=== PATIENT | female | born 1970 | race African-American/Black ===

== ENCOUNTER 2018-08-07 19:27 | Inpatient (IN) | payer OTHER, SELFPAY ==
[2018-08-07 20:29] LABS: #Basophils 0.1 thou/uL (0.0-0.2); #Eosinphils 0.2 thou/uL (0.0-0.7); #Lymphocytes 2.2 thou/uL (1.20-3.40); #Monocytes 0.8 thou/uL (0.11-0.59); #Neutrophils 10.6 thou/uL (1.40-6.50); %Basophils 0.4 % (0.0-1.0); %Eosinophils 1.6 % (0.0-10.0); %Lymphocytes 15.7 % (21.0-51.0); %Neutrophils 76.3 % (42.0-75.0); Hemoglobin 12.6 g/dL (12.0-16.0); Mean Corpuscular HGB CONC 32.9 g/dL (32.0-36.0); Mean Corpuscular Hemoglobin 28.7 pg (27.0-31.0); Mean Corpuscular Volume 87.2 fL (78.0-98.0); Mean Platelet Volume 7.3 fL (7.4-10.4); Platelet Count 343 thou/uL (130-400); RBC Distribution Width 12.9 % (11.5-14.5); White Blood Cell (WBC) Count 13.9 thou/uL (4.8-10.8)
--- NOTE | 2018-08-07 20:29 | RAD ---
ONE VIEW CHEST: HISTORY: Chest pain. Epigastric pain. COMPARISON: 04/06/2015 FINDINGS: Normal cardiac silhouette. The pulmonary vessels are within normal limits. Patchy interstitial opac ities, without consolidation or mass. No pleural effusion. No pneumothorax or osseous abnormalities . IMPRESSION: Patchy interstitial opacities, which are presumed to be due to edema. POS: [facility]
--- NOTE | 2018-08-07 20:47 | RAD ---
ABDOMEN TWO VIEW SERIES: INDICATIONS: Abdominal pain. TECHNIQUE: Three views provided. FINDINGS: The imaged lung bases are clear. No free air is seen. The bowel gas pattern is nonspecific. Phlebo liths overly the pelvis. Mild osseous degenerative change is present. IMPRESSION: 1. Nonspecific bowel gas pattern. 2. No free air. 3. Clear lung bases. POS: [facility]
[2018-08-07 20:50] LABS: ALT (SGPT) 15 U/L (8-55); AST (SGOT) 21 U/L (5-34); Albumin 3.8 g/dL (3.5-5.0); Alkaline Phosphatase 84 U/L (40-150); Anion Gap 9 mmol/L (10-20); BUN (Urea Nitrogen) 9 mg/dL (7.0-18.7); Bilirubin, Total 0.5 mg/dL (0.2-1.2); CK (CPK) 106 U/L (29-168); Calc. Creatinine Clearance 0 mL/min (70-130); Calcium 9.2 mg/dL (7.8-10.44); Carbon Dioxide 28 mmol/L (22-29); Chloride 102 mmol/L (98-107); Estimated GFR-MDRD 73; Globulin 3.6 g/dL (2.4-3.5); Glucose 126 mg/dL (70-105); Potassium 3.3 mmol/L (3.5-5.1); Protein, Total 7.4 g/dL (6.0-8.3); Sodium 136 mmol/L (136-145)
[2018-08-07 20:56] LABS: CKMB 0.3 ng/mL (0-6.6); Troponin I Less than 0.010 ng/mL (< 0.028)
[2018-08-07] MEDS ORDERED: Pantoprazole 40 MG VIAL ONE (20:56)
--- NOTE | 2018-08-07 21:20 | ULT ---
GALLBLADDER ULTRASOUND: INDICATIONS: Right upper quadrant pain. FINDINGS: There is distention of the gallbladder, and there is mild enlargement of the common duct, measuring 6 -7 mm. Leblanc sign is reported as negative by the manager concrete. There is no focal hepatic lesion. N o shadowing cholelithiasis. The imaged pancreatic duct is mildly prominent, where visualized, at 4 m m. IMPRESSION: Distention of the gallbladder and biliary ductal system, as well as mild prominence of the imaged reardon creatic duct. No shadowing cholelithiasis. Recommend correlation with biliary laboratory values. POS: [facility]
[2018-08-07 22:25] LABS: Bilirubin Negative (Negative); Blood, Urine Trace (Negative); Clarity CLOUDY (Clear); Glucose, Urine (Dipstick) Negative (Negative); Leukocyte Negative (Negative); Nitrite Negative (Negative); Protein, Urine (Dipstick) Trace mg/dL (Neg-Trace); Specific Gravity, Urine 1.011 (1.002-1.036); pH, Urine 6.5 (5.0-9.0)
[2018-08-07 22:31] LABS: Bacteria/HPF None Seen HPF (None Seen); Hyaline Casts/LPF 0-3 HYALINE CAST LPF (0-3 Hyaline); Pathc Cast-AUWi Flag 0.29 (0-2.49); RBC/HPF 0-3 HPF (0-3)
[2018-08-07] MEDS ORDERED: Morphine 4 MG/ML VIAL SLOW IVP PRN (23:29)
[2018-08-07] MEDS ORDERED: Ondansetron ODT 4 MG TAB SL PRN (23:30)
[2018-08-07] MEDS ORDERED: Acetaminophen 325 MG TAB PO PRN (23:30)
[2018-08-07] MEDS ORDERED: Ondansetron HCl/PF 4 MG/2 ML Vial IVP PRN (23:30)
[2018-08-07] MEDS ORDERED: Ketorolac Tromethamine 30 MG/ML VIAL IVP PRN (23:30)
[2018-08-07 23:48] VITALS: BMI 37.7
[2018-08-08] MEDS: Sodium Chloride 0.9% 1,000 ML IV SCH ×4 (00:47→19:52)
[2018-08-08] MEDS ORDERED: Acetaminophen 325 MG TAB PO PRN (08:32)
[2018-08-08] MEDS ORDERED: Ondansetron ODT 4 MG TAB PO PRN (08:32)
[2018-08-08] MEDS ORDERED: Ketorolac Tromethamine 30 MG/ML VIAL IVP PRN (08:32)
[2018-08-08] MEDS: Lisinopril/Hydrochlorothiazide 20 mg/12.5 mg Tablet PO SCH (08:41)
[2018-08-08 08:54] LABS: #Basophils 0.1 thou/uL (0.0-0.2); #Eosinphils 0.2 thou/uL (0.0-0.7); #Lymphocytes 2.2 thou/uL (1.20-3.40); #Monocytes 0.7 thou/uL (0.11-0.59); #Neutrophils 6.7 thou/uL (1.40-6.50); %Basophils 0.7 % (0.0-1.0); %Eosinophils 2.2 % (0.0-10.0); %Lymphocytes 22.4 % (21.0-51.0); %Monocytes 6.7 % (0.0-10.0); Hemoglobin 11.6 g/dL (12.0-16.0); Mean Corpuscular HGB CONC 32.4 g/dL (32.0-36.0); Mean Corpuscular Hemoglobin 28.6 pg (27.0-31.0); Mean Corpuscular Volume 88.1 fL (78.0-98.0); Mean Platelet Volume 7.6 fL (7.4-10.4); Platelet Count 280 thou/uL (130-400); RBC Distribution Width 12.8 % (11.5-14.5); Red Blood Cell (RBC) Count 4.05 mill/uL (4.20-5.40); White Blood Cell (WBC) Count 9.9 thou/uL (4.8-10.8)
[2018-08-08 09:20] LABS: Anion Gap 12 mmol/L (10-20); BUN (Urea Nitrogen) 6 mg/dL (7.0-18.7); Calc. Creatinine Clearance 133 mL/min (70-130); Calcium 8.9 mg/dL (7.8-10.44); Carbon Dioxide 20 mmol/L (22-29); Chloride 107 mmol/L (98-107); Estimated GFR-MDRD Greater than 90; Glucose 78 mg/dL (70-105); Lipase 389 U/L (8-78); Potassium 3.7 mmol/L (3.5-5.1); Sodium 135 mmol/L (136-145)
[2018-08-08] MEDS ORDERED: Pantoprazole 40 MG VIAL IVP SCH (21:00)
--- NOTE | 2018-08-09 02:37 | CON ---
DATE OF CONSULTATION: 08/08/2018 HISTORY OF PRESENT ILLNESS: The patient is a 47-year-old -Dominican female, who was in her [facility] state of health until the day prior to admission when she developed significant epigastric pain r adiating through the back. She has had a similar episode of pancreatitis back in [address] Purdy at that time. She denies any alcohol use. Denies any recent weight loss. Denies any recent ch leisa in bowel function, although may be experiencing a small amount of constipation. PAST MEDICAL HISTORY: Significant for hypertension and borderline diabetes. PAST SURGICAL HISTORY: Includes tubal ligation. ALLERGIES: No known medical allergies. HOME MEDICATIONS: Include lisinopril/hydrochlorothiazide 1 p.o. q. day. SOCIAL HISTORY: She does smoke, does not drink alcohol. FAMILY HISTORY: Negative for pancreatic disorders. REVIEW OF SYSTEMS: Ten systems were reviewed and were negative except for above. PHYSICAL EXAMINATION: GENERAL: Shows overweight -Dominican female, in no acute distress. VITAL SIGNS: Temperature 97.9, pulse 65, respiratory rate 18, blood pressure 176/84. HEENT: Unremarkable. NECK: Supple. CHEST: Clear. CARDIOVASCULAR: Regular rate and rhythm. ABDOMEN: Soft, tender in the epigastric area without rebound or guarding. Bowel sounds are present and normoactive. RECTAL: Deferred. EXTREMITIES: Normal. NEUROLOGIC: Nonfocal. LABORATORY DATA AND IMAGING: Shows admission white blood cell count of 13.9. Hemoglobin 12.6, repea t is 9.9 and 11.6 respectively. Chemistry is significant for potassium 3.3, glucose 126. LFTs were totally normal. Triglyceride is not performed. Urinalysis is essentially normal. Abdominal ultraso und shows distention of the gallbladder and biliary ductal dilatation as well as mild prominence of t he image, pancreatic duct. No gallstones are appreciated. ASSESSMENT: 1. Acute idiopathic pancreatitis - no alcohol use. No gallstones, but there is some biliary and reardon creatic dilatation by ultrasound. 2. Hypertension. 3. Borderline diabetes by history. RECOMMENDATIONS: 1. Check triglyceride level. 2. CT of the abdomen. 3. Continue n.p.o.
[2018-08-09] MEDS: Sodium Chloride 0.9% 1,000 ML IV SCH (03:53)
[2018-08-09 04:26] LABS: #Eosinphils 0.3 thou/uL (0.0-0.7); #Lymphocytes 2.9 thou/uL (1.20-3.40); #Monocytes 0.7 thou/uL (0.11-0.59); #Neutrophils 4.2 thou/uL (1.40-6.50); %Basophils 0.3 % (0.0-1.0); %Eosinophils 3.5 % (0.0-10.0); %Lymphocytes 35.3 % (21.0-51.0); %Monocytes 8.7 % (0.0-10.0); %Neutrophils 52.2 % (42.0-75.0); Hemoglobin 11.6 g/dL (12.0-16.0); Mean Corpuscular HGB CONC 33.5 g/dL (32.0-36.0); Mean Corpuscular Hemoglobin 29.4 pg (27.0-31.0); Mean Corpuscular Volume 87.7 fL (78.0-98.0); Mean Platelet Volume 7.6 fL (7.4-10.4); Platelet Count 276 thou/uL (130-400); RBC Distribution Width 12.7 % (11.5-14.5); Red Blood Cell (RBC) Count 3.95 mill/uL (4.20-5.40); White Blood Cell (WBC) Count 8.1 thou/uL (4.8-10.8)
[2018-08-09 04:36] LABS: ALT (SGPT) 22 U/L (8-55); AST (SGOT) 19 U/L (5-34); Albumin 3.3 g/dL (3.5-5.0); Alkaline Phosphatase 86 U/L (40-150); Anion Gap 9 mmol/L (10-20); BUN (Urea Nitrogen) 5 mg/dL (7.0-18.7); Bilirubin, Total 0.6 mg/dL (0.2-1.2); Calc. Creatinine Clearance 126 mL/min (70-130); Calcium 8.9 mg/dL (7.8-10.44); Carbon Dioxide 24 mmol/L (22-29); Chloride 105 mmol/L (98-107); Estimated GFR-MDRD 89; Globulin 3.3 g/dL (2.4-3.5); Glucose 83 mg/dL (70-105); Lipase 205 U/L (8-78); Potassium 3.4 mmol/L (3.5-5.1); Protein, Total 6.6 g/dL (6.0-8.3); Sodium 135 mmol/L (136-145)
--- NOTE | 2018-08-09 05:59 | HP ---
DATE OF ADMISSION: 08/07/2018 REASON FOR ADMISSION AND CHIEF COMPLAINT: Abdominal pain. HISTORY OF PRESENT ILLNESS: Ms. Bey is a 47-year-old female with past medical history of hypertension, who came because of the abdominal pain mainly in the epigastric area with burping and pain was getting worse. Pain radiates to the upper abdomen as well as to the left side, left upper, but the pain was getting worse whenever she eats and vomited once. The patient came to the emergency room where she was evaluated and found to have possible pancreatitis. The patient was started on IV fluids, started on Protonix as well and admitted for further evaluation and management. PAST MEDICAL HISTORY: Hypertension. PAST SURGICAL HISTORY: Status post tubal ligation. CURRENT MEDICATIONS: Patient is on lisinopril with hydrochlorothiazide 20/12.5 daily. ALLERGIES: No known drug allergies. FAMILY HISTORY: Nothing of interest. SOCIAL HISTORY: Patient lives with family. No history of alcohol intake. Smokes one pack a day. REVIEW OF SYSTEMS: Unremarkable except for the abdominal pain. PHYSICAL EXAMINATION: GENERAL: The patient is alert, awake, oriented x3. VITAL SIGNS: Temperature 98, pulse 74, respirations 20, blood pressure 130/70. HEENT: Head is normocephalic, atraumatic. Pupils are equal and reactive to light. Nasopharynx is pale and dry. Hard and soft palate, no lesions seen. SKIN: Skin turgor decreased. NECK: Supple. No JVD. LUNGS: Bilateral air entry present. No rales, no rhonchi. CARDIAC: S1, S2 regular. ABDOMEN: Soft, tender in the epigastric area and both upper quadrants. No guarding, no rigidity. Bowel sounds present. RECTAL: Deferred. CENTRAL NERVOUS SYSTEM: No focal deficit. LABORATORY AND X-RAY FINDINGS: CBC shows WBC 13.9, hemoglobin 12, hematocrit 38 , platelets 343. Metabolic panel: Sodium 136, potassium 3.3, chloride 102, CO2 of 28, urea nitrogen 9, glucose 126. Serum lipase 2704. CK-MB 0.3, troponin I less than 0.010. LFTs are normal. Urinalysis negative. Ultrasound of the abdomen revealed distention of the gallbladder and biliary duct cyst with mild prominence of the pancreatic duct. EKG shows sinus bradycardia with heart rate of 59, no acute ST-T wave changes seen. ASSESSMENT: 1. Abdominal pain. 2. Possible acute pancreatitis. 3. Hypertension. 4. Hypokalemia. PLAN: 1. Vital signs q.4 hours. 2. Activity: As tolerated. 3. Allergies: NKDA. 4. Diet: Clear liquids. 5. IV fluids: Normal saline at 100 mL per hour. 6. Toradol 30 mg IVP q.6 hours p.r.n. 7. GI consult. 8. Protonix 40 mg IV piggyback daily. 9. We will obtain a.m. labs. MTDD
[2018-08-09] MEDS: Lisinopril/Hydrochlorothiazide 20 mg/12.5 mg Tablet PO SCH (07:38)
[2018-08-09 07:40] VITALS: TEMP 98.1
[2018-08-09 11:09] VITALS: BP 162/80
--- NOTE | 2018-08-09 11:55 | CT ---
CT OF THE ABDOMEN AND PELVIS WITH AND WITHOUT IV CONTRAST: Date: 08/09/18 INDICATION: History of pancreatitis and epigastric abdominal pain. COMPARISON: Right upper quadrant ultrasound dated 08/07/18, CT aortic dissection protocol dated 04/06/15, and CT of the abdomen and pelvis dated 10/22/14. FINDINGS: There is bibasilar atelectasis. No focal hepatic lesion is evident. There are mildly prominent lymph nodes within the peripancreatic and channing hepatis regions, which are stable to comparison CT of 2014. No drainable fluid collection is evident. The pancreas enhances liz ropriately. The spleen, adrenal glands, and kidneys are normal appearing. There are moderate calcifications involving the abdominopelvic vasculature. There is a 1.8 cm involuting cyst within the left ovary. No free fluid is evident. The bladder is dec ompressed. No acute osseous abnormality is evident. There is a fat-containing right inguinal hernia. IMPRESSION: ] 1. Bibasilar lung atelectasis. 2. No focal hepatic lesion identified. 3. No drainable fluid collection seen. 4. Other chronic findings as above. POS: [facility]
--- NOTE | 2018-08-09 12:04 | PRG ---
DATE OF SERVICE: 08/09/2018 SUBJECTIVE: The patient is feeling well. She is having no abdominal pain. She is hungry. OBJECTIVE: VITAL SIGNS: Temperature 98.1, pulse 73, respiratory rate 18, blood pressure 162/80. CHEST: Clear. CARDIOVASCULAR: Regular rate and rhythm. ABDOMEN: Soft, nontender, without organomegaly or masses. Bowel sounds present and normoactive. LABORATORY DATA: Shows a sodium 135, potassium 3.4, albumin 3.3, lipase of 205. Triglycerides 71. Abdominal pelvic CT is still pending. ASSESSMENT: 1. Acute pancreatitis of unknown etiology. 2. Abnormal ultrasound of bile duct and pancreatic duct. RECOMMENDATIONS: 1. Advance diet. 2. Await CT results.
--- NOTE | 2018-08-10 02:37 | DIS ---
DATE OF ADMISSION: 08/07/2018 DATE OF DISCHARGE: 08/09/2018 ADMITTING DIAGNOSES: 1. Acute pancreatitis. 2. Abdominal pain secondary to #1. 3. Hypertension. 4. Hypokalemia. FINAL DIAGNOSES: 1. Acute idiopathic pancreatitis. No alcohol use, no cholelithiasis. 2. Hypertension. 3. Hypokalemia. BRIEF SUMMARY OF HOSPITAL COURSE: Ms. Bey is a 47-year-old - Iranian female admitted because of abdominal pain with sudden onset. The patient has markedly elevated lipase. Abdominal ultrasound revealed no evidence of gallstones, but dilated biliary ductal system. A GI consult was done. The patient was seen by Dr. Davalos. He felt the patient has idiopathic pancreatitis and advised to advance the diet. A CT scan of the abdomen and pelvis was done and it revealed no evidence of any focal hepatic lesion or any kind of pancreatic inflammation. It only showed a cyst in the left ovary otherwise. It was unremarkable. The patient tolerated diet very well. In view of improvement, the patient is being discharged. At the time of discharge , she was stable. Vital signs stable. Lungs clear. Heart sounds regular. Abdomen is soft, nontender. Bowel sounds present. DISCHARGE MEDICATIONS: Increase lisinopril/hydrochlorothiazide to 20/12.5 b.i.d. because her blood pressure was elevated. FOLLOWUP: The patient will come for followup next week. MARILEE
== END 2018-08-09 14:41 | disposition home or self-care (01) | DRG 440 ==
LOC: ERS 19:27 → ONC 21:30 → ERS 22:47
PROVIDERS: ADMIT Internal Medicine; ATTEND Internal Medicine
DX: K85.00 Idiopathic acute pancreatitis without necrosis or infection (principal); I10 Essential (primary) hypertension; E87.6 Hypokalemia; R73.03 Prediabetes
CPT/HCPCS: 36415; 71045; 74019; 74177; 76705; 80048; 80053; 81003; 81015; 82553; 83690; 83880; 84478; 84484; 85025; 93005; 96361; 96374; A4216; C9113; J1885

== ENCOUNTER 2019-01-27 17:12 | Emergency (ER) | payer OTHER, SELFPAY ==
[2019-01-27 17:46] LABS: #Basophils 0.1 thou/uL (0.0-0.2); #Eosinphils 0.3 thou/uL (0.0-0.7); #Lymphocytes 3.1 thou/uL (1.20-3.40); #Neutrophils 7.8 thou/uL (1.40-6.50); %Basophils 0.8 % (0.0-1.0); %Eosinophils 2.3 % (0.0-10.0); %Lymphocytes 25.2 % (21.0-51.0); %Monocytes 8.4 % (0.0-10.0); %Neutrophils 63.3 % (42.0-75.0); Mean Corpuscular HGB CONC 34.1 g/dL (32.0-36.0); Mean Corpuscular Volume 85.3 fL (78.0-98.0); Mean Platelet Volume 7.7 fL (7.4-10.4); Platelet Count 289 thou/uL (130-400); RBC Distribution Width 12.8 % (11.5-14.5); Red Blood Cell (RBC) Count 4.82 mill/uL (4.20-5.40); White Blood Cell (WBC) Count 12.4 thou/uL (4.8-10.8)
--- NOTE | 2019-01-27 17:57 | RAD ---
PORTABLE UPRIGHT FRONTAL CHEST RADIOGRAPH 01/27/19 COMPARISON: 08/07/18 HISTORY: Chest pain radiating to the back. FINDINGS: The heart and mediastinal contours are stable. No pneumothorax or pleural fluid. No focal consolidati on or alveolar edema. IMPRESSION: No acute findings. POS: [facility]
[2019-01-27 18:01] LABS: ALT (SGPT) 15 U/L (8-55); AST (SGOT) 17 U/L (5-34); Albumin 4.2 g/dL (3.5-5.0); Alkaline Phosphatase 97 U/L (40-150); Anion Gap 15 mmol/L (10-20); BUN (Urea Nitrogen) 9 mg/dL (7.0-18.7); Bilirubin, Total 0.6 mg/dL (0.2-1.2); CK (CPK) 134 U/L (29-168); Calc. Creatinine Clearance 0 mL/min (70-130); Calcium 9.6 mg/dL (7.8-10.44); Carbon Dioxide 22 mmol/L (22-29); Chloride 102 mmol/L (98-107); Estimated GFR-MDRD 86; Globulin 3.7 g/dL (2.4-3.5); Glucose 99 mg/dL (70-105); Potassium 3.7 mmol/L (3.5-5.1); Protein, Total 7.9 g/dL (6.0-8.3); Sodium 135 mmol/L (136-145)
[2019-01-27] MEDS ORDERED: Mag-Al 1200 mg/1200 mg/30 ML UDCUP ONE (18:06)
[2019-01-27] MEDS ORDERED: Lidocaine Viscous Sol 2% 15 ml UD Cup ONE (18:06)
[2019-01-27] MEDS ORDERED: Morphine 2 MG/ML SYRINGE ONE (19:12)
[2019-01-27] MEDS ORDERED: Morphine 4 MG/ML VIAL ONE (19:12)
--- NOTE | 2019-01-28 09:31 | ULT ---
RIGHT UPPER QUADRANT ULTRASOUND: 01/27/19 COMPARISON: None. HISTORY: Right upper quadrant pain. TECHNIQUE: Multiplanar montoya scale sonographic imaging of the right upper quadrant provided. FINDINGS: The visualized portions of the pancreas appear unremarkable. No focal liver lesion or intrahepatic biliary dilatation is seen. No gallbladder wall thickening or pericholecystic fluid. No gallstones are noted. The legal office administrator rep orts a negative Leblanc's sign. The common bile duct measures 5 mm, within normal limits. The right kidney measures 11.3 cm craniocaudal dimension and demonstrates no evidence for stone, hydr onephrosis or mass. IMPRESSION: No acute findings. POS: [facility]
== END 2019-01-27 19:50 | disposition home or self-care (01) ==
LOC: ERS 17:12
DX: K85.90 Acute pancreatitis without necrosis or infection, unspecified (principal); I50.9 Heart failure, unspecified; M06.9 Rheumatoid arthritis, unspecified; F41.9 Anxiety disorder, unspecified; F32.9 Major depressive disorder, single episode, unspecified; F17.210 Nicotine dependence, cigarettes, uncomplicated; R73.03 Prediabetes; Z79.899 Other long term (current) drug therapy
CPT/HCPCS: 36415; 71045; 76705; 80053; 82550; 83690; 84484; 85025; 93005; 94760; 96374; J2270

== ENCOUNTER 2019-10-14 18:39 | Emergency (ER) | payer OTHER ==
--- NOTE | 2019-10-14 19:11 | RAD ---
Chest one view HISTORY: Cough. COMPARISON: 01/27/2019. FINDINGS: Cardiac silhouette and pulmonary vasculature are unremarkable. Mediastinum is midline. No c onfluent airspace consolidation or evidence of pneumothorax. Small focus of dystrophic calcification projects over the peripheral aspect of the left rotator cuff. sound art instructor leads ove rlie the chest. IMPRESSION: No active cardiopulmonary abnormalities are demonstrated.
[2019-10-14] MEDS ORDERED: predniSONE 20 MG TAB ONE (19:32)
== END 2019-10-14 20:35 | disposition home or self-care (01) ==
LOC: ERS 18:39
DX: T59.891A Toxic effect of other specified gases, fumes and vapors, accidental (unintentional), initial encounter (principal); I11.0 Hypertensive heart disease with heart failure; I50.9 Heart failure, unspecified; F32.9 Major depressive disorder, single episode, unspecified; F41.9 Anxiety disorder, unspecified; F17.210 Nicotine dependence, cigarettes, uncomplicated; Z79.899 Other long term (current) drug therapy; X14.0XXA Inhalation of hot air and gases, initial encounter
CPT/HCPCS: 71045; 93005; 94640; J7512; J7620

== ENCOUNTER 2019-10-30 09:47 | Emergency (ER) | payer OTHER | END 2019-10-30 10:35 | disposition home or self-care (01) | LOC: ERS 09:47 | DX: I88.9 Nonspecific lymphadenitis, unspecified (principal); F41.9 Anxiety disorder, unspecified; F32.9 Major depressive disorder, single episode, unspecified; M06.9 Rheumatoid arthritis, unspecified; R73.03 Prediabetes; I11.0 Hypertensive heart disease with heart failure; I50.9 Heart failure, unspecified; F17.210 Nicotine dependence, cigarettes, uncomplicated; Z79.899 Other long term (current) drug therapy | CPT/HCPCS: 99283 ==

== ENCOUNTER 2020-01-22 18:42 | Inpatient (IN) | payer OTHER, SELFPAY ==
[2020-01-22 19:37] LABS: #Basophils 0.1 thou/uL (0.0-0.2); #Eosinphils 0.2 thou/uL (0.0-0.7); #Lymphocytes 3.5 thou/uL (1.20-3.40); #Monocytes 0.9 thou/uL (0.11-0.59); #Neutrophils 7.4 thou/uL (1.40-6.50); %Basophils 0.6 % (0.0-1.0); %Eosinophils 1.8 % (0.0-10.0); %Monocytes 7.2 % (0.0-10.0); %Neutrophils 61.4 % (42.0-75.0); Mean Corpuscular HGB CONC 34.2 g/dL (32.0-36.0); Mean Corpuscular Hemoglobin 29.5 pg (27.0-31.0); Mean Corpuscular Volume 86.2 fL (78.0-98.0); Mean Platelet Volume 8.1 fL (7.4-10.4); Platelet Count 317 thou/uL (130-400); RBC Distribution Width 12.4 % (11.5-14.5); Red Blood Cell (RBC) Count 4.75 mill/uL (4.20-5.40); White Blood Cell (WBC) Count 12.1 thou/uL (4.8-10.8)
[2020-01-22 19:59] LABS: ALT (SGPT) 12 U/L (8-55); AST (SGOT) 16 U/L (5-34); Albumin 4.1 g/dL (3.5-5.0); Alkaline Phosphatase 97 U/L (40-110); Anion Gap 13 mmol/L (10-20); BUN (Urea Nitrogen) 8 mg/dL (7.0-18.7); Bilirubin, Total 0.5 mg/dL (0.2-1.2); Calc. Creatinine Clearance 0 mL/min (70-130); Calcium 9.7 mg/dL (7.8-10.44); Carbon Dioxide 28 mmol/L (22-29); Chloride 96 mmol/L (98-107); Estimated GFR-MDRD 79; Globulin 4.2 g/dL (2.4-3.5); Glucose 97 mg/dL (70-105); Protein, Total 8.3 g/dL (6.0-8.3); Sodium 134 mmol/L (136-145)
[2020-01-22 20:01] LABS: Potassium 2.9 mmol/L (3.5-5.1)
[2020-01-22] MEDS ORDERED: Ondansetron PF 4 MG/2 ML Vial ONE (20:02)
[2020-01-22] MEDS ORDERED: Morphine 4 MG/ML VIAL ONE (20:02)
--- NOTE | 2020-01-22 20:21 | RAD ---
PORTABLE CHEST: 01/22/20 HISTORY: Epigastric pain. COMPARISON: 10/14/19. The lungs appear clear. No infiltrate. Heart and mediastinum unremarkable. IMPRESSION: No evidence of infiltrate. POS: [facility]
[2020-01-22] MEDS ORDERED: Potassium Chloride 20 MEQ TAB ONE (20:30)
[2020-01-22] MEDS ORDERED: Potassium Chloride 40 MEQ in Sodium Chloride 0.9% 500 ML IVPB SCH (21:00)
--- NOTE | 2020-01-22 21:00 | ULT ---
RIGHT UPPER QUADRANT ULTRASOUND: 01/22/20 INDICATION: Epigastric and right upper quadrant abdominal pain radiating to the back with nausea. FINDINGS: No focal hepatic lesion is evident. Gallbladder is normal appearing. No sonographic Leblanc's sign reported. Common bile duct measures 4.9 mm. Right kidney measures 10.4 x 5..1 x 5.6 cm. No focal renal lesion or hydronephrosis evident. No free fluid is demonstrated. The main pancreatic duct is slightly accentuated within the pancreatic body but only measures up to 1 .9 mm. IMPRESSION: No acute sonographic abnormality seen within the abdomen. POS: [facility]
[2020-01-22] MEDS ORDERED: Morphine 4 MG/ML VIAL SLOW IVP PRN (23:30)
[2020-01-22] MEDS ORDERED: Ondansetron ODT 4 MG TAB SL PRN (23:31)
[2020-01-22] MEDS ORDERED: Ondansetron PF 4 MG/2 ML Vial IVP PRN (23:31)
[2020-01-22 23:59] VITALS: BMI 41.1
[2020-01-23] MEDS: Sodium Chloride 0.9% 1,000 ML IV SCH ×2 (00:36→03:30)
[2020-01-23] MEDS ORDERED: Lisinopril/Hydrochlorothiazide 20 mg/12.5 mg Tablet PO SCH (10:00)
[2020-01-23] MEDS: Dextrose 5 %-0.45 % NaCl 1,000 ML IV SCH ×2 (10:45→20:04)
[2020-01-23 12:56] LABS: Anion Gap 11 mmol/L (10-20); BUN (Urea Nitrogen) 6 mg/dL (7.0-18.7); Calc. Creatinine Clearance 132 mL/min (70-130); Calcium 8.8 mg/dL (7.8-10.44); Carbon Dioxide 23 mmol/L (22-29); Chloride 106 mmol/L (98-107); Estimated GFR-MDRD 89; Glucose 79 mg/dL (70-105); Potassium 3.6 mmol/L (3.5-5.1); Sodium 136 mmol/L (136-145)
[2020-01-23] MEDS: Morphine 2 MG/ML SYRINGE SLOW IVP PRN ×2 (15:25→21:52)
--- NOTE | 2020-01-23 19:03 | RAD ---
TWO VIEW ABDOMEN: 01/23/20 INDICATIONS: Pancreatitis. Supine upright views obtained. Scattered stool and gas seen throughout the colon. Small bowel gas pattern is unremarkable with some scattered small bowel gas noted. No small bowel dilatation. No evidence of obstruction. No soft tissu e mass effect or abnormal calcification. Osseous structures unremarkable. IMPRESSION: Nonspecific bowel gas pattern. Mildly increased small bowel gas; however, no evidence of small bowel dilatation or obstruction. POS: [facility]
[2020-01-23] MEDS: Lisinopril/Hydrochlorothiazide 20 mg/12.5 mg Tablet PO SCH (20:05)
[2020-01-23] MEDS: Ondansetron PF 4 MG/2 ML Vial IVP PRN (22:13)
[2020-01-24] MEDS: Dextrose 5 %-0.45 % NaCl 1,000 ML IV SCH ×3 (04:08→19:33)
[2020-01-24 05:31] LABS: #Basophils 0.1 thou/uL (0.0-0.2); #Eosinphils 0.3 thou/uL (0.0-0.7); #Lymphocytes 2.4 thou/uL (1.20-3.40); #Monocytes 0.8 thou/uL (0.11-0.59); #Neutrophils 6.9 thou/uL (1.40-6.50); %Basophils 0.9 % (0.0-1.0); %Eosinophils 2.9 % (0.0-10.0); %Lymphocytes 22.6 % (21.0-51.0); %Neutrophils 65.6 % (42.0-75.0); Hemoglobin 12.5 g/dL (12.0-16.0); Mean Corpuscular HGB CONC 33.7 g/dL (32.0-36.0); Mean Corpuscular Volume 86.2 fL (78.0-98.0); Mean Platelet Volume 8.2 fL (7.4-10.4); Platelet Count 262 thou/uL (130-400); RBC Distribution Width 12.2 % (11.5-14.5); Red Blood Cell (RBC) Count 4.29 mill/uL (4.20-5.40); White Blood Cell (WBC) Count 10.5 thou/uL (4.8-10.8)
[2020-01-24] MEDS: Ondansetron PF 4 MG/2 ML Vial IVP PRN ×2 (05:50→20:39)
[2020-01-24] MEDS: Morphine 2 MG/ML SYRINGE SLOW IVP PRN ×2 (05:50→20:39)
[2020-01-24 05:55] LABS: ALT (SGPT) 9 U/L (8-55); AST (SGOT) 12 U/L (5-34); Albumin 3.5 g/dL (3.5-5.0); Alkaline Phosphatase 86 U/L (40-110); Anion Gap 10 mmol/L (10-20); BUN (Urea Nitrogen) 4 mg/dL (7.0-18.7); Bilirubin, Total 0.6 mg/dL (0.2-1.2); Calc. Creatinine Clearance 125 mL/min (70-130); Calcium 9.3 mg/dL (7.8-10.44); Carbon Dioxide 26 mmol/L (22-29); Chloride 100 mmol/L (98-107); Estimated GFR-MDRD 83; Globulin 3.4 g/dL (2.4-3.5); Glucose 103 mg/dL (70-105); Lipase 273 U/L (8-78); Potassium 3.5 mmol/L (3.5-5.1); Protein, Total 6.9 g/dL (6.0-8.3); Sodium 132 mmol/L (136-145)
[2020-01-24] MEDS: Lisinopril/Hydrochlorothiazide 20 mg/12.5 mg Tablet PO SCH ×2 (09:12→19:34)
--- NOTE | 2020-01-24 11:24 | HP ---
CHIEF COMPLAINT: Abdominal pain and nausea, but no vomiting. HISTORY OF PRESENT ILLNESS: Ms. Bey is a 49-year-old female with past medical history of hypertension and pancreatitis, came because of abdominal pain of acute onset. The patient thought it could be related to gas, but the pain did not improve. She came to the emergency room, where she was found to have elevated lipase, suspected to have pancreatitis. She did not have any chest pain. No headache. No dizziness. No fever. The patient was also found to have severe hypokalemia with potassium of 2.9. The patient received potassium replacement as well as Zofran for nausea and started on IV fluids and morphine. PAST MEDICAL HISTORY: 1. Hypertension. 2. Hyperlipidemia. 3. History of pancreatitis. PAST SURGICAL HISTORY: Status post tubal ligation. CURRENT MEDICATIONS: The patient is on 1. Lisinopril with hydrochlorothiazide 20/12.5 b.i.d. 2. Tylenol p.r.n. ALLERGIES: NKDA. FAMILY HISTORY: Nothing contributory. SOCIAL HISTORY: The patient lives with family. No history of alcohol intake. Smokes 10 cigarettes a day. REVIEW OF SYSTEMS: Unremarkable except for the pain. PHYSICAL EXAMINATION: VITAL SIGNS: Temperature 99, pulse 80, respirations 20, and blood pressure 130/60. HEENT: Head is normocephalic, atraumatic. Pupils equal and reactive. Nasopharynx is pale and dry. NECK: Supple. No JVD. LUNGS: Bilateral air entry. No rales, no rhonchi. HEART: S1 and S2, regular. ABDOMEN: Soft, diffusely tender. No guarding. No rigidity. Bowel sounds present. RECTAL: Deferred. CENTRAL NERVOUS SYSTEM: No focal deficits. LABORATORY DATA: CBC shows WBC 12, hemoglobin 14, hematocrit 40, and platelets 371. Metabolic panel; sodium 134, potassium 2.9, chloride 96, CO2 of 28, BUN 8, creatinine 0.9, glucose 97. Serum lipase 468. On abdominal ultrasound, gallbladder was normal, right kidney and left kidney, normal. No other abnormalities seen. Chest x-ray clear. ASSESSMENT: 1. Abdominal pain. 2. Possible pancreatitis. 3. Hypertension. 4. Severe hypokalemia. PLAN: 1. Vital signs q.4 hours. 2. Activities, as tolerated. 3. Allergies, NKDA. 4. IV fluids, D5 half at 100 ml/mt 5. KCl replacement. 6. Continue home medication. 7. Diet n.p.o, except meds. 8. We will repeat the labs. Job ID: [id number] [facility]
[2020-01-25] MEDS: Lisinopril/Hydrochlorothiazide 20 mg/12.5 mg Tablet PO SCH (08:12)
[2020-01-25 11:31] VITALS: BP 142/77; TEMP 97.7
--- NOTE | 2020-01-26 14:50 | EKG ---
Test Reason : Blood Pressure : / mmHG Vent. Rate : 073 BPM Atrial Rate : 073 BPM P-R Int : 138 ms QRS Dur : 072 ms QT Int : 400 ms P-R-T Axes : 023 066 025 degrees QTc Int : 440 ms Normal sinus rhythm Normal ECG Confirmed by STEVE GARCIA ([id number]), newspaper photo editor CELSO FULLER ([id number]) on 01/26/2020 2:50:01 PM Referred By: Confirmed By:STEVE Matthew
--- NOTE | 2020-01-26 22:27 | DIS ---
DATE OF ADMISSION: 01/22/2020 DATE OF DISCHARGE: 01/25/2020 ADMITTING DIAGNOSES: 1. Abdominal pain. 2. Possible pancreatitis. 3. Hypertension. 4. Severe hypokalemia. FINAL DIAGNOSES: 1. Abdominal pain, resolved. 2. Pancreatitis, improving. 3. Severe hypokalemia, corrected. 4. Hypertension. BRIEF SUMMARY OF HOSPITAL COURSE: Ms. Bey is a 49-year-old from female admitted with abdominal pain. The patient was found to have elevated lipase, history of pancreatitis, is kept n.p.o. and the patient was also found to have severe hypokalemia with potassium of 2.9. The patient was given some potassium replacement. Potassium went up to 3.6 and then it remained around 3.5. The patient's lipase was followed, it came down from 468 to 273, then 190. The patient's abdominal pain resolved. She was started on diet and she tolerated diet very well. In view of improvement, the patient is discharged. At the time of discharge, she was stable with vital signs stable. Lungs clear. Heart sounds regular. Abdomen is soft and nontender. Bowel sounds present. DISCHARGE MEDICATIONS: Include, 1. Lisinopril with hydrochlorothiazide 20/12.5 daily b.i.d. 2. Tylenol p.r.n. The patient will come for followup in 2 weeks. Job ID: [id number]
--- NOTE | 2020-01-28 13:29 | PQF ---
Bere Bey VENKAT R MD [id number] CLINICAL DOCUMENTATION CLARIFICATION FORM: POST DISCHARGE Addendum to original discharge summary date: ____ Late entry note date: __ DATE: 01/28/2020 ATTN:RAMSEY DE LA TORRE MD Please exercise your independent, professional judgment in responding to the clarification form. Clinical indicators are provided on the bottom of this form for your review Please check appropriate box(s): BMI > 40 with associated diagnosis of: (check one) [ y ] Morbid (Severe) Obesity [ ] Due to excess calories [ ] with Alveolar Hypoventilation (Pickwickian syndrome) [ ] Overweight [ ] Obesity [ ] Other diagnosis [ ] Unable to determine In addition, please specify: Present on Admission (POA): [ y ] Yes [ ] No [ ] Unable to Determine For continuity of documentation, please document condition throughout progress notes and discharge summary. Thank You. BMI < 18.5Under weight = 18.5 - 24.9Healthy = 25.0 - 29.9Slightly Overweight = 30.0 - 34.9Obese/Class I = 35.0 - 39.9Severely Obese/Class II = 40.0 and OverMorbidly Obese/Class III CLINICAL INDICATORS - SIGNS / SYMPTOMS / LABS Height -1.57 m-Documented in FNS assessment Current weight-102.172 kg -Documented in FNS assessment BMI-41.1-Documented in FNS assessment Hyperlipidemia-Documented in H&P on 01/21 by ramsey De La Torre MD RISK FACTORS Hyperlipidemia-Documented in H&P on 01/21 by ramsey De La Torre MD TREATMENTS: Diet n.p.o, except meds-Documented in H&P on 01/21 by ramsey De La Torre MD SAP Box Car Checker [employer] Winform Viewer (This form is maintained as a part of the permanent medical record) 2014 [employer]. All Rights Reserved [email or web address]
== END 2020-01-25 15:35 | disposition home or self-care (01) | DRG 439 ==
LOC: ERS 18:42 → SURG A 21:42
PROVIDERS: ADMIT Internal Medicine; ATTEND Internal Medicine
DX: K85.90 Acute pancreatitis without necrosis or infection, unspecified (principal); Z68.41 Body mass index [BMI] 40.0-44.9, adult; E87.6 Hypokalemia; I10 Essential (primary) hypertension; I11.0 Hypertensive heart disease with heart failure; I50.9 Heart failure, unspecified; F17.200 Nicotine dependence, unspecified, uncomplicated; F32.9 Major depressive disorder, single episode, unspecified; F41.9 Anxiety disorder, unspecified; Z98.51 Tubal ligation status; E66.01 Morbid (severe) obesity due to excess calories
CPT/HCPCS: 36415; 71045; 74019; 76705; 80048; 80053; 83690; 84484; 85025; 93005; 94760; 96361; 96365; 96366; 96375; J2270; J2405; J3480; J7050

== ENCOUNTER 2020-01-31 18:09 | Observation (INO) | payer SELFPAY ==
[2020-01-31 18:47] LABS: #Basophils 0.1 thou/uL (0.0-0.2); #Eosinphils 0.3 thou/uL (0.0-0.7); #Lymphocytes 3.4 thou/uL (1.20-3.40); #Neutrophils 7.5 thou/uL (1.40-6.50); %Eosinophils 2.2 % (0.0-10.0); %Lymphocytes 27.5 % (21.0-51.0); %Monocytes 7.9 % (0.0-10.0); %Neutrophils 61.3 % (42.0-75.0); Hemoglobin 13.6 g/dL (12.0-16.0); Mean Corpuscular HGB CONC 34.2 g/dL (32.0-36.0); Mean Corpuscular Volume 84.8 fL (78.0-98.0); Mean Platelet Volume 7.9 fL (7.4-10.4); Platelet Count 321 thou/uL (130-400); RBC Distribution Width 12.3 % (11.5-14.5); Red Blood Cell (RBC) Count 4.69 mill/uL (4.20-5.40); White Blood Cell (WBC) Count 12.2 thou/uL (4.8-10.8)
[2020-01-31 19:12] LABS: ALT (SGPT) 16 U/L (8-55); AST (SGOT) 17 U/L (5-34); Alkaline Phosphatase 95 U/L (40-110); Anion Gap 14 mmol/L (10-20); BUN (Urea Nitrogen) 11 mg/dL (7.0-18.7); Bilirubin, Total 0.3 mg/dL (0.2-1.2); Calc. Creatinine Clearance 0 mL/min (70-130); Calcium 9.5 mg/dL (7.8-10.44); Carbon Dioxide 22 mmol/L (22-29); Chloride 102 mmol/L (98-107); Estimated GFR-MDRD 87; Globulin 4.1 g/dL (2.4-3.5); Glucose 142 mg/dL (70-105); Lipase 676 U/L (8-78); Protein, Total 8.1 g/dL (6.0-8.3); Sodium 135 mmol/L (136-145)
[2020-01-31] MEDS ORDERED: Morphine 4 MG/ML VIAL ONE (19:13)
[2020-01-31] MEDS ORDERED: Ondansetron PF 4 MG/2 ML Vial ONE (19:13)
[2020-01-31 22:00] LABS: Phosphorus 3.1 mg/dL (2.3-4.7)
[2020-01-31] MEDS ORDERED: Ondansetron ODT 4 MG TAB SL PRN (22:54)
[2020-01-31] MEDS ORDERED: Ondansetron PF 4 MG/2 ML Vial IVP PRN (22:54)
[2020-01-31] MEDS ORDERED: Sodium Chloride 0.9% 1,000 ML IV SCH (22:54)
[2020-01-31 23:26] VITALS: BMI 40.1
[2020-01-31] MEDS ORDERED: Potassium Chloride 20 MEQ in Premix Bag 1 BAG IVPB SCH (23:30)
[2020-01-31] MEDS: Potassium Chloride 20 MEQ in Premix Bag 1 BAG IVPB SCH (23:51)
[2020-02-01] MEDS: Sodium Chloride 0.9% 1,000 ML IV SCH ×2 (00:18→11:04)
[2020-02-01] MEDS ORDERED: Potassium Chloride 20 MEQ TAB PO SCH (00:30)
[2020-02-01] MEDS: Potassium Chloride 20 MEQ in Premix Bag 1 BAG IVPB SCH (00:40)
[2020-02-01] MEDS: Nicotine 7 MG PATCH TD SCH (00:45)
[2020-02-01] MEDS ORDERED: Ondansetron PF 4 MG/2 ML Vial IVP PRN (01:13)
--- NOTE | 2020-02-01 02:02 | HP ---
TIME OF ASSESSMENT: 2299 CHIEF COMPLAINT: Epigastric abdominal pain with nausea. PRIMARY CARE PHYSICIAN: Dr. Evans. HISTORY OF PRESENT ILLNESS: Ms. Bey is a 49-year-old woman with a known history of pancreatitis who was recently discharged from the hospital on 01/26/[address] Evans after being admitted with abdominal pain secondary to pancreatitis. The patient had been kept n.p.o. with resolving abdominal pain. She had a lipase of 468, that improved to 180 on discharge. The patient was pain free at the time of discharge. She also had hypokalemia, which was treated during her hospitalization. The patient states that on Tuesday, she started to notice some recurring discomfort. She states she has been trying to "adhere to her diet" and when questioned further as to what she has been eating, she mentioned eating pork skin, pickle juice, hamburger, and broccoli. She denies any alcohol consumption. The patient states the pain became significantly worse today and was a 10/10 in severity. She reports having nausea earlier in the week on Tuesday, but has not had any further associated nausea and denies any vomiting. Reports having normal bowel movements. States her abdomen has remained soft. The patient states since her recent admission, she has tried to cut down on how much she smokes and previously smoked 1 pack per day, but now is smoking 3-4 cigarettes a day. The patient denies any associated fevers or chills. EMERGENCY DEPARTMENT COURSE: In the emergency department, she underwent laboratory studies that were notable for a white count of 12.2. Hemoglobin 13.6, platelets 321. Sodium 135, potassium 3.0, BUN 11, creatinine 0.84, GFR 87, glucose 142, magnesium 2.0. Total bilirubin 0.3, AST 17, ALT 16, lipase elevated at 676. The patient did not undergo any imaging today. In the emergency department, she was started on IV fluids and kept n.p.o. She was given morphine 4 mg IV for the pain, which helped to take it away. It was a 10/10 in severity and is now a 3/10. She was given Zofran due to nausea associated with morphine. PAST MEDICAL HISTORY: 1. Pancreatitis. 2. Hypertension. 3. Hyperlipidemia. 4. CHF. 5. Tobacco use. 6. RA. 7. Depression. 8. Anxiety. PAST SURGICAL HISTORY: Tubal ligation. FAMILY HISTORY: Noncontributory. SOCIAL HISTORY: The patient lives with family. Denies any alcohol consumption. She smokes 3 to 4 cigarettes a day, but more recently was smoking a pack a day. The patient is eager to quit smoking. ALLERGIES: NO KNOWN DRUG ALLERGIES. CURRENT MEDICATIONS: 1. Lisinopril/HCT. 2. Senna. PHYSICAL EXAMINATION: GENERAL: The patient appears well developed, well nourished, is no acute distress. She is resting comfortably in bed. VITAL SIGNS: Temperature 98.1, pulse 72, respirations 16, O2 saturation 99% on room air, blood pressure 142/95. HEENT: Normocephalic and atraumatic. Pupils are equal, round, and reactive to light. Sclerae without icterus. Oropharynx is clear. NECK: Supple. LUNGS: Clear to auscultation bilaterally without any wheezes, rales, or rhonchi. CARDIAC: Regular rate and rhythm. ABDOMEN: Soft. Mild epigastric discomfort with deep palpation. No guarding or rigidity. No renal angle tenderness. NEUROLOGIC: Alert and oriented x3. EXTREMITIES: Notable for mild swelling in the ankles, but no edema. SKIN: Warm and dry. INVESTIGATIONS: As mentioned above in HPI. IMPRESSION AND PLAN: Ms. Bey is a 49-year-old woman, who is being admitted with recurrent pancreatitis. The patient states she has been trying to adhere to diet, but it seems she has been eating fatty foods including hamburgers and pork skin. Denies any alcohol consumption. She is currently n.p.o. with significant improvement in her pain since given morphine. We will continue with IV fluids and continue to manage her pain with morphine. She will be kept n.p.o. overnight. We will repeat LFTs and lipase in the morning. We will also check a lipid panel. She has a history of hypertension. We will monitor blood pressure and reconcile home meds once verified. Of note, she mentioned a history of congestive heart failure in the past. We will add a BNP with morning labs given the amount of fluid she has been given and we will cut down her current normal saline to 75 mL/h. Her potassium is low at 3.0, but magnesium is normal. We will continue to monitor electrolytes and we will replace her potassium. DVT prophylaxis with mechanical SCDs. Gastrointestinal prophylaxis with famotidine. Code status is full. Surrogate decision maker is her , Emigdio Bey. Case discussed with attending who agrees with plan of care as described above. Job ID: [id number]
[2020-02-01 05:20] LABS: #Basophils 0.1 thou/uL (0.0-0.2); #Eosinphils 0.3 thou/uL (0.0-0.7); #Lymphocytes 3.5 thou/uL (1.20-3.40); #Monocytes 0.7 thou/uL (0.11-0.59); #Neutrophils 5.3 thou/uL (1.40-6.50); %Basophils 1.1 % (0.0-1.0); %Eosinophils 3.5 % (0.0-10.0); %Lymphocytes 35.1 % (21.0-51.0); %Monocytes 7.3 % (0.0-10.0); Hemoglobin 12.4 g/dL (12.0-16.0); Mean Corpuscular HGB CONC 34.2 g/dL (32.0-36.0); Mean Corpuscular Hemoglobin 29.3 pg (27.0-31.0); Mean Corpuscular Volume 85.6 fL (78.0-98.0); Platelet Count 263 thou/uL (130-400); RBC Distribution Width 12.4 % (11.5-14.5); Red Blood Cell (RBC) Count 4.24 mill/uL (4.20-5.40)
[2020-02-01 05:46] LABS: ALT (SGPT) 12 U/L (8-55); AST (SGOT) 15 U/L (5-34); Albumin 3.3 g/dL (3.5-5.0); Alkaline Phosphatase 80 U/L (40-110); Anion Gap 16 mmol/L (10-20); BUN (Urea Nitrogen) 8 mg/dL (7.0-18.7); Bilirubin, Total 0.4 mg/dL (0.2-1.2); Calc. Creatinine Clearance 141 mL/min (70-130); Calcium 8.6 mg/dL (7.8-10.44); Carbon Dioxide 19 mmol/L (22-29); Cardiac Risk 4.4 (Less than 4.5); Chloride 104 mmol/L (98-107); Cholesterol 155 mg/dl (< 200 Desired); Estimated GFR-MDRD Greater than 90; Globulin 3.4 g/dL (2.4-3.5); Glucose 97 mg/dL (70-105); HDL Cholesterol 35 mg/dL (>60 Neg Risk); LDL Cholesterol, Calculated 105 mg/dL; Lipase 257 U/L (8-78); Potassium 3.5 mmol/L (3.5-5.1); Protein, Total 6.7 g/dL (6.0-8.3); Sodium 135 mmol/L (136-145); Triglycerides 75 mg/dL (Less than 150)
[2020-02-01] MEDS: Famotidine/PF 20 mg/2ml Vial SLOW IVP SCH ×2 (09:04→20:10)
[2020-02-01] MEDS: Morphine 2 MG/ML SYRINGE SLOW IVP PRN ×3 (11:03→20:12)
--- NOTE | 2020-02-01 13:49 | PDOC.HOSPP ---
- Subjective Encounter Date: 02/01/20 Encounter Time: 10:10 Subjective: pt just received pain meds, and getting iVF - pain better - mostly in the epigastric area and radiates to the back. her BP 142/95. she appears comfortable. - Objective Vital Signs & Weight: Vital Signs (12 hours) Temp Pulse Resp BP Pulse Ox 02/01/20 12:00 98.2 F 63 18 130/78 96 02/01/20 08:00 98.2 F 61 18 114/76 96 02/01/20 03:16 98.1 F 63 18 119/77 98 Weight Weight 219 lb 9 oz I&O: 01/31/20 02/01/20 02/02/20 06:59 06:59 06:59 Intake Total 1565 Balance 1565 Result Diagrams: 02/01/20 05:08 02/01/20 05:08 Hospitalist ROS - Medication Medications: Active Medications Generic Name Dose Route Start Last Admin Trade Name Freq PRN Reason Stop Dose Admin Famotidine 20 mg 02/01/20 09:00 02/01/20 09:04 Pepcid SLOW IVP 20 mg Q12HR ROXANNE Administration Sodium Chloride 1,000 mls @ 75 mls/hr 01/31/20 23:45 02/01/20 11:04 Normal Saline 0.9% IV 1,000 mls .[id number] ROXANNE Administration Morphine Sulfate 2 mg 02/01/20 01:13 02/01/20 11:03 Morphine SLOW IVP 2 mg Q4H PRN Administration Severe Pain (7-10) Nicotine 7 mg 01/31/20 23:45 02/01/20 00:45 Nicoderm Patch TD 7 mg Q24HR ROXANNE Administration - Exam General Appearance: NAD, awake alert Eye: PERRL ENT: normocephalic atraumatic Neck: supple Heart: RRR, normal peripheral pulses Respiratory: CTAB, normal chest expansion Gastrointestinal: soft, non-tender, non-distended, normal bowel sounds, no palpable masses Neurological: no focal deficits Hosp A/P - Plan Recurrent pancreatitis -cw IVF, NPO, analgesics -lipase trending down - TGL is only at 75\ -CLD in am and advance. Leukocytosis -resolved HTN - will provide onlyhydralaine PRN -avoid thiazide, acei
[2020-02-02] MEDS: Nicotine 7 MG PATCH TD SCH (00:19)
[2020-02-02] MEDS: Sodium Chloride 0.9% 1,000 ML IV SCH ×2 (00:19→13:30)
[2020-02-02] MEDS: Morphine 2 MG/ML SYRINGE SLOW IVP PRN (06:16)
[2020-02-02] MEDS: Famotidine/PF 20 mg/2ml Vial SLOW IVP SCH (08:25)
[2020-02-02 17:05] LABS: Anion Gap 11 mmol/L (10-20); BUN (Urea Nitrogen) 10 mg/dL (7.0-18.7); Calc. Creatinine Clearance 137 mL/min (70-130); Calcium 8.5 mg/dL (7.8-10.44); Carbon Dioxide 23 mmol/L (22-29); Chloride 107 mmol/L (98-107); Estimated GFR-MDRD Greater than 90; Glucose 93 mg/dL (70-105); Potassium 3.5 mmol/L (3.5-5.1); Sodium 137 mmol/L (136-145)
[2020-02-02 18:09] VITALS: BP 152/85; TEMP 98.4
--- NOTE | 2020-02-03 15:54 | DIS ---
DATE OF ADMISSION: 01/31/2020 DATE OF DISCHARGE: 02/02/2020 HOSPITAL COURSE: Ms. Bey is a 49-year-old female with a medical history of recurrent acute pancreatitis, who was recently discharged from the hospital on the after being diagnosed with acute pancreatitis and she returned to the hospital with another episode of pancreatitis. 1. Acute pancreatitis. 2. Mild pancreatitis. 3. Recent ultrasound of the gallbladder showed no cholelithiasis or choledocholithiasis. 4. The patient was on lisinopril and hydrochlorothiazide, both of which are known to be precipitants of acute pancreatitis, however, considering the patient's habitus as well as dietary habits, most likely diagnosis remains gallstone pancreatitis. 5. The patient is symptomatic, improved, and tolerated diet on the day of discharge. 6. She was discharged with a followup appointment with Gastroenterology for followup on her transabdominal ultrasound. 7. On the day of discharge, the patient was hemodynamically stable and had no complaints. PHYSICAL EXAMINATION: VITAL SIGNS: Unremarkable. GENERAL: In no apparent distress. Alert and oriented x3. CARDIAC: Regular rate and rhythm. No gallops. LUNGS: Clear to auscultation bilaterally. No rales, wheezing, or rhonchi. ABDOMEN: Nondistended, nontender. Soft. Normal bowel sounds. Had a normal bowel movement on the day of discharge. EXTREMITIES: Strength 5/5 throughout upper and lower extremities. No edema. PSYCHIATRIC: Proper mood and affect. Alert and oriented x3. Job ID: [id number]
== END 2020-02-02 18:15 | disposition home or self-care (01) ==
LOC: ERS 18:09 → T4-A 22:56
PROVIDERS: ADMIT Internal Medicine; ATTEND Internal Medicine
DX: K85.90 Acute pancreatitis without necrosis or infection, unspecified (principal); I11.0 Hypertensive heart disease with heart failure; I50.9 Heart failure, unspecified; F17.210 Nicotine dependence, cigarettes, uncomplicated; E78.5 Hyperlipidemia, unspecified; M06.9 Rheumatoid arthritis, unspecified; F41.9 Anxiety disorder, unspecified; F32.9 Major depressive disorder, single episode, unspecified; Z79.899 Other long term (current) drug therapy
CPT/HCPCS: 36415; 80048; 80053; 80061; 83690; 83735; 83880; 84100; 85025; 90471; 90732; 94760; 96361; 96365; 96374; 96375; 96376; G0009; G0378; J2270; J2405; J3480; S0028

== ENCOUNTER 2020-08-15 18:23 | Emergency (ER) | payer SELFPAY ==
[2020-08-15] MEDS ORDERED: Ketorolac Tromethamine 30 MG/ML VIAL ONE (18:49)
--- NOTE | 2020-08-15 18:57 | RAD ---
XR Wrist 3 Lt View STANDARD History: Injury Comparison: None. Findings: Only seen on the lateral radiograph are a few ovoid calcifications projecting over the vola r lip of the distal radius which may be from underlying tendinopathy or old capsular injury. No acute displaced fracture or malalignment is appreciated. Impression: No acute osseous abnormality.
== END 2020-08-15 19:47 | disposition home or self-care (01) ==
LOC: ERS 18:23
DX: S63.502A Unspecified sprain of left wrist, initial encounter (principal); I11.0 Hypertensive heart disease with heart failure; I50.9 Heart failure, unspecified; F41.9 Anxiety disorder, unspecified; F32.9 Major depressive disorder, single episode, unspecified; F17.210 Nicotine dependence, cigarettes, uncomplicated; Z79.899 Other long term (current) drug therapy; X58.XXXA Exposure to other specified factors, initial encounter
CPT/HCPCS: 96372; J1885

== ENCOUNTER 2021-01-05 22:21 | Emergency (ER) | payer SELFPAY ==
--- NOTE | 2021-01-05 23:27 | RAD ---
XR Chest Pa Lat STANDARD HISTORY: Dizziness and syncope COMPARISON: 01/22/2020 FINDINGS: The heart size is normal. The lungs are well expanded without focal areas of consolidation, pneumothorax or pleural effusions. IMPRESSION: No radiographic evidence of acute cardiopulmonary process.
[2021-01-05 23:50] LABS: #Basophils 0.1 thou/uL (0.0-0.2); #Eosinphils 0.3 thou/uL (0.0-0.7); #Monocytes 0.8 thou/uL (0.11-0.59); #Neutrophils 9.2 thou/uL (1.40-6.50); %Basophils 0.5 % (0.0-1.0); %Eosinophils 1.9 % (0.0-10.0); %Lymphocytes 22.5 % (21.0-51.0); %Monocytes 6.2 % (0.0-10.0); %Neutrophils 68.9 % (42.0-75.0); Hemoglobin 14.6 g/dL (12.0-16.0); Mean Corpuscular HGB CONC 33.9 g/dL (32.0-36.0); Mean Corpuscular Hemoglobin 29.5 pg (27.0-31.0); Mean Platelet Volume 7.6 fL (7.4-10.4); Platelet Count 306 thou/uL (130-400); RBC Distribution Width 12.9 % (11.5-14.5); Red Blood Cell (RBC) Count 4.95 mill/uL (4.20-5.40); White Blood Cell (WBC) Count 13.4 thou/uL (4.8-10.8)
[2021-01-05] MEDS ORDERED: Acetaminophen 500 MG TAB ONE (23:54)
[2021-01-05 23:59] LABS: BHCG - Serum Negative (NEGATIVE); Pregs Control Background? CLEAR/WHITE (CLR/WHITE); Pregs Control Bar Appear? YES (CONTROL BAR)
[2021-01-06 00:06] LABS: ALT (SGPT) 13 U/L (8-55); AST (SGOT) 12 U/L (5-34); Alkaline Phosphatase 98 U/L (40-110); Anion Gap 15 mmol/L (10-20); BUN (Urea Nitrogen) 11 mg/dL (9.8-20.1); Bilirubin, Total 0.3 mg/dL (0.2-1.2); Calc. Creatinine Clearance 0 mL/min (70-130); Calcium 9.6 mg/dL (7.8-10.44); Carbon Dioxide 26 mmol/L (22-29); Chloride 101 mmol/L (98-107); Globulin 4.4 g/dL (2.4-3.5); Glucose 139 mg/dL (70-105); Lipase 646 U/L (8-78); Potassium 3.5 mmol/L (3.5-5.1); Protein, Total 8.4 g/dL (6.0-8.3); Sodium 138 mmol/L (136-145)
== END 2021-01-06 03:05 | disposition home or self-care (01) ==
LOC: ERS 22:21
DX: K85.90 Acute pancreatitis without necrosis or infection, unspecified (principal); R55 Syncope and collapse; I11.0 Hypertensive heart disease with heart failure; I50.9 Heart failure, unspecified; M06.9 Rheumatoid arthritis, unspecified; E78.00 Pure hypercholesterolemia, unspecified; F17.210 Nicotine dependence, cigarettes, uncomplicated; Z79.899 Other long term (current) drug therapy
CPT/HCPCS: 36415; 71046; 80053; 83690; 84484; 84703; 85025; 93005

== ENCOUNTER 2021-02-10 21:45 | Emergency (ER) | payer OTHER, SELFPAY ==
[~2021-02-10 21:45] MED LIST: Iopamidol-370 76% 500 ML 1 ML ONE
[2021-02-10 22:19] LABS: #Basophils 0.1 thou/uL (0.0-0.2); #Eosinphils 0.3 thou/uL (0.0-0.7); #Lymphocytes 3.8 thou/uL (1.20-3.40); #Monocytes 0.8 thou/uL (0.11-0.59); #Neutrophils 9.5 thou/uL (1.40-6.50); %Basophils 0.5 % (0.0-1.0); %Eosinophils 1.9 % (0.0-10.0); %Lymphocytes 26.2 % (21.0-51.0); %Monocytes 5.7 % (0.0-10.0); %Neutrophils 65.7 % (42.0-75.0); Hemoglobin 14.4 g/dL (12.0-16.0); Mean Corpuscular HGB CONC 33.4 g/dL (32.0-36.0); Mean Corpuscular Hemoglobin 29.1 pg (27.0-31.0); Mean Corpuscular Volume 87.2 fL (78.0-98.0); Mean Platelet Volume 7.5 fL (7.4-10.4); Platelet Count 331 thou/uL (130-400); RBC Distribution Width 13.1 % (11.5-14.5); Red Blood Cell (RBC) Count 4.94 mill/uL (4.20-5.40); White Blood Cell (WBC) Count 14.4 thou/uL (4.8-10.8)
[2021-02-10 23:08] LABS: ALT (SGPT) 12 U/L (8-55); AST (SGOT) 14 U/L (5-34); Alkaline Phosphatase 104 U/L (40-110); Anion Gap 16 mmol/L (10-20); BUN (Urea Nitrogen) 9 mg/dL (9.8-20.1); Bilirubin, Total 0.5 mg/dL (0.2-1.2); Calc. Creatinine Clearance 0 mL/min (70-130); Calcium 9.7 mg/dL (7.8-10.44); Carbon Dioxide 22 mmol/L (22-29); Chloride 99 mmol/L (98-107); Globulin 4.4 g/dL (2.4-3.5); Glucose 125 mg/dL (70-105); Lipase 355 U/L (8-78); Potassium 3.3 mmol/L (3.5-5.1); Protein, Total 8.4 g/dL (6.0-8.3); Sodium 134 mmol/L (136-145)
[2021-02-10 23:15] LABS: Bacteria/HPF None Seen HPF (None Seen); Bilirubin Negative (Negative); Blood, Urine 1+ (Negative); Clarity Clear (Clear); Glucose, Urine (Dipstick) Normal (Negative); Ketone, Urine Negative (Negative); Leukocyte 25 Leu/uL (Negative); Mucous/LPF 1+ LPF (<2+); Nitrite Negative (Negative); Protein, Urine (Dipstick) 30 mg/dL (Neg-Trace); RBC/HPF 0-3 HPF (0-3); Specific Gravity, Urine 1.015 (1.002-1.036); Urobilinogen Normal mg/dL (Less than 2); WBC/HPF 0-3 HPF (0-3); pH, Urine 5.5 (5.0-9.0)
[2021-02-10] MEDS ORDERED: Morphine 4 MG/ML VIAL ONE (23:29)
[2021-02-10] MEDS ORDERED: Ondansetron PF 4 MG/2 ML Vial ONE (23:30)
== END 2021-02-11 01:47 | disposition home or self-care (01) ==
LOC: ERS 21:45
DX: K85.90 Acute pancreatitis without necrosis or infection, unspecified (principal); Z79.899 Other long term (current) drug therapy; I11.0 Hypertensive heart disease with heart failure; I50.9 Heart failure, unspecified; E78.00 Pure hypercholesterolemia, unspecified; F17.210 Nicotine dependence, cigarettes, uncomplicated
CPT/HCPCS: 36415; 74177; 80053; 81003; 81015; 83690; 85025; 96374; 96375; J2270; J2405; Q9967

== ENCOUNTER 2021-03-14 19:13 | Emergency (ER) | payer OTHER | END 2021-03-14 19:39 | disposition home or self-care (01) | LOC: ERS 19:13 | DX: M10.9 Gout, unspecified (principal); I11.0 Hypertensive heart disease with heart failure; I50.9 Heart failure, unspecified; M06.9 Rheumatoid arthritis, unspecified; E78.00 Pure hypercholesterolemia, unspecified; F17.210 Nicotine dependence, cigarettes, uncomplicated; Z79.899 Other long term (current) drug therapy | CPT/HCPCS: 99283 ==

== ENCOUNTER 2022-03-11 10:26 | Emergency (ER) | payer SELFPAY ==
[2022-03-11] MEDS ORDERED: Ketorolac Tromethamine 30 MG/ML VIAL ONE (12:05)
== END 2022-03-11 14:20 | disposition home or self-care (01) ==
LOC: ERS 10:26
DX: S81.812A Laceration without foreign body, left lower leg, initial encounter (principal); Y92.129 Unspecified place in nursing home as the place of occurrence of the external cause; I11.0 Hypertensive heart disease with heart failure; I50.9 Heart failure, unspecified; E78.00 Pure hypercholesterolemia, unspecified; F17.210 Nicotine dependence, cigarettes, uncomplicated; M06.9 Rheumatoid arthritis, unspecified; X50.0XXA Overexertion from strenuous movement or load, initial encounter; Y93.F2 Activity, caregiving, lifting; Z87.19 Personal history of other diseases of the digestive system
CPT/HCPCS: 76999; 96372; J1885

== ENCOUNTER 2023-05-09 22:06 | Emergency (ER) | payer SELFPAY ==
[2023-05-09] MEDS ORDERED: Ketorolac Tromethamine 30 MG/ML VIAL ONE (23:13)
[2023-05-10] MEDS ORDERED: Dexamethasone 10 MG/ML VIAL ONE (00:38)
[2023-05-10] MEDS ORDERED: Morphine 4 MG/ML VIAL ONE (00:38)
[2023-05-10 01:30] LABS: Bacteria/HPF 4+ HPF (None Seen); Bilirubin Negative (Negative); Blood, Urine Trace (Negative); CAUTI Indications for Culture Pelvic or flank pain; Clarity Turbid (Clear); Glucose, Urine (Dipstick) Normal (Negative); Ketone, Urine Negative (Negative); Leukocyte 500 Leu/uL (Negative); Nitrite 1+ (Negative); Protein, Urine (Dipstick) 30 mg/dL (Neg-Trace); Specific Gravity, Urine 1.023 (1.002-1.036); Squamous Epithelial 0-3 HPF (0-3); Transitional Epithelial 0-3 HPF (None Seen); Urobilinogen Normal mg/dL (Less than 2); WBC/HPF Greater than 50 HPF (0-3)
[2023-05-10 01:39] LABS: Urine Culture Reflex Yes Yes
== END 2023-05-10 02:32 | disposition home or self-care (01) ==
LOC: ERS 22:06
DX: M54.32 Sciatica, left side (principal); N39.0 Urinary tract infection, site not specified; E78.00 Pure hypercholesterolemia, unspecified; F17.210 Nicotine dependence, cigarettes, uncomplicated
CPT/HCPCS: 81001; 87077; 87086; 87186; 93005; 96372; J1100; J1885; J2270

== ENCOUNTER 2023-07-05 16:27 | Emergency (ER) | payer SELFPAY ==
[2023-07-05] MEDS ORDERED: Ondansetron ODT 4 MG TAB ONE (17:04)
[2023-07-05] MEDS ORDERED: Ketorolac Tromethamine 30 MG/ML VIAL ONE (17:04)
[2023-07-05] MEDS ORDERED: traMADol HCl 50 MG TAB ONE (21:21)
== END 2023-07-05 21:44 | disposition home or self-care (01) ==
LOC: ERS 16:27
DX: S63.92XA Sprain of unspecified part of left wrist and hand, initial encounter (principal); E11.9 Type 2 diabetes mellitus without complications; E78.5 Hyperlipidemia, unspecified; I10 Essential (primary) hypertension; F17.290 Nicotine dependence, other tobacco product, uncomplicated; W18.30XA Fall on same level, unspecified, initial encounter; Z79.899 Other long term (current) drug therapy
CPT/HCPCS: 93005; 96372; J1885; Q0162

== ENCOUNTER 2024-07-26 20:35 | Emergency (ER) | payer SELFPAY ==
[2024-07-26 21:17] LABS: #Basophils 0.08 10x3/uL (0.0-0.2); %Basophils 0.7 % (0.0-1.0); %Lymphocytes 26.4 % (21.0-51.0); %Monocytes 5.8 % (0.0-10.0); %Neutrophils 64.8 % (42.0-75.0); Hemoglobin 14.3 g/dL (12.0-16.0); Mean Corpuscular Hemoglobin 28.7 pg (27.0-31.0); Mean Corpuscular Volume 84.2 fL (78.0-98.0); Mean Platelet Volume 9.6 fL (7.4-10.4); Platelet Count 325 10x3/uL (130-400); RBC Distribution Width 13.8 % (11.5-14.5); Red Blood Cell (RBC) Count 4.99 mill/uL (4.20-5.40)
[2024-07-26 21:25] LABS: Bacteria/HPF None Seen HPF (None Seen); Bilirubin Negative (Negative); Blood, Urine Negative (Negative); CAUTI Indications for Culture Pelvic or flank pain; Clarity Clear (Clear); Glucose, Urine (Dipstick) Normal (Negative); Ketone, Urine Negative (Negative); Leukocyte Negative Leu/uL (Negative); Nitrite Negative (Negative); Protein, Urine (Dipstick) 10 mg/dL (Neg-Trace); RBC/HPF 0-3 HPF (0-3); Specific Gravity, Urine 1.018 (1.002-1.036); Squamous Epithelial 0-3 HPF (0-3); Urobilinogen Normal mg/dL (Less than 2); WBC/HPF 0-3 HPF (0-3)
[2024-07-26 21:26] LABS: Urine Culture Reflex No No
[2024-07-26 21:48] LABS: ALT (SGPT) 11 U/L (8-55); AST (SGOT) 13 U/L (5-34); Albumin 3.5 g/dL (3.5-5.0); Alkaline Phosphatase 108 U/L (40-110); Anion Gap 13 mmol/L (10-20); BUN (Urea Nitrogen) 11 mg/dL (9.8-20.1); Bilirubin, Total 0.3 mg/dL (0.2-1.2); Calc. Creatinine Clearance 0 mL/min (70-130); Calcium 9.8 mg/dL (7.8-10.44); Carbon Dioxide 25 mmol/L (22-29); Chloride 102 mmol/L (98-107); Estimated GFR 74; Globulin 4.5 g/dL (2.4-3.5); Glucose 110 mg/dL (70-105); Lipase 115 U/L (8-78); Potassium 3.3 mmol/L (3.5-5.1); Sodium 137 mmol/L (136-145)
[2024-07-26] MEDS ORDERED: Morphine 4 MG/ML VIAL ONE (21:49)
[2024-07-26] MEDS ORDERED: Ondansetron PF 4 MG/2 ML Vial ONE (21:50)
[2024-07-26 21:54] LABS: Troponin I Less than 0.010 ng/mL (< 0.028)
== END 2024-07-26 23:12 | disposition home or self-care (01) ==
LOC: ERS 20:35
DX: K85.90 Acute pancreatitis without necrosis or infection, unspecified (principal); I10 Essential (primary) hypertension; F17.210 Nicotine dependence, cigarettes, uncomplicated; E11.9 Type 2 diabetes mellitus without complications
CPT/HCPCS: 36415; 71045; 74177; 80053; 81001; 83690; 84484; 85025; 93005; 96374; 96375; J2272; J2405

== ENCOUNTER 2024-09-05 10:32 | Outpatient (CLI) | payer OTHER | END 2024-09-05 10:33 | disposition home or self-care (01) | LOC: BICMAMMO 10:32 | PROVIDERS: ATTEND Nurse Practitioner Family | DX: Z12.31 Encounter for screening mammogram for malignant neoplasm of breast (principal) | CPT/HCPCS: 77063; 77067 ==

== ENCOUNTER 2024-09-29 03:50 | Emergency (ER) | payer MEDICARE, OTHER ==
[2024-09-29] MEDS ORDERED: Fleet Saline Enema 133 ML BOT ONE (05:45)
== END 2024-09-29 06:30 | disposition home or self-care (01) ==
LOC: ERS 03:50
DX: K59.00 Constipation, unspecified (principal); I11.0 Hypertensive heart disease with heart failure; I50.9 Heart failure, unspecified; E11.9 Type 2 diabetes mellitus without complications; F17.210 Nicotine dependence, cigarettes, uncomplicated; Z55.0 Illiteracy and low-level literacy; Z79.84 Long term (current) use of oral hypoglycemic drugs; Z79.899 Other long term (current) drug therapy
CPT/HCPCS: 99283

== ENCOUNTER 2025-10-04 14:28 | Emergency (ER) | payer SELFPAY ==
[2025-10-04] MEDS ORDERED: HYDROcodone/Acetaminophen 5/325 mg Tablet ONE (15:30)
== END 2025-10-04 17:51 | disposition home or self-care (01) ==
LOC: ERS 14:28
DX: M54.2 Cervicalgia (principal); M25.512 Pain in left shoulder; I11.0 Hypertensive heart disease with heart failure; I50.9 Heart failure, unspecified; E11.9 Type 2 diabetes mellitus without complications; F17.210 Nicotine dependence, cigarettes, uncomplicated; W54.1XXA Struck by dog, initial encounter
CPT/HCPCS: 72125; 96372